=== PATIENT | male | born 1990 | race Caucasian/White ===

== ENCOUNTER 2022-01-08 14:09 | Outpatient (CLI) | payer BC, SELFPAY ==
--- NOTE | 2022-01-08 14:30 | CRLHL7_ITS ---
For Patients: As a result of the Century Cures Act, medical imaging exams and procedure reports are released immediately into your electronic medical record. You may view this report before your referring provider. If you have questions, please contact your health care provider. INDICATION: Low back pain. TECHNIQUE: Noncontrast sagittal and axial T1, T2, and sagittal STIR sequences are provided. No comparisons. FINDINGS: The overall stature, alignment and intrinsic marrow signal of the lumbar spine is within normal limits. Conus is normal. L5-S1: There is a left posterior paracentral disc herniation extending 5 millimeters beyond the posterior vertebral body margin mildly contacting the traversing left S1 nerve root and resulting in no significant central canal or foraminal narrowing. Remainder of the lumbar spine is unremarkable, specifically no evidence of suspicious central canal or foraminal narrowing. IMPRESSION: 1. Mild discogenic degenerative change at L5-S1 resulting in mild contact of the traversing left S1 nerve root with no significant central canal or foraminal narrowing. 2. Otherwise, unremarkable MRI of the lumbar spine. Dictated by José Miguel Sarmiento MD @ 01/08/2022 6:36:50 PM (Electronically Signed)
== END 2022-01-08 14:10 | disposition home or self-care (01) ==
PROVIDERS: Visit Provider Family Medicine
DX: M54.50 Low back pain, unspecified (principal); M51.37 Other intervertebral disc degeneration, lumbosacral region
CPT/HCPCS: 72148